=== PATIENT | female | born 1990 | race Caucasian/White ===

== ENCOUNTER 2016-12-16 09:36 | Emergency (ER) | payer OTHER ==
[~2016-12-16] VITALS: Ht 167.6 cm; Wt 65.8 kg
[2016-12-16 09:48] VITALS: BP 118/65
--- NOTE | 2016-12-16 09:51 | NUR ---
Patient ambulated to bed 3. RN evaluating patient at bedside.
--- NOTE | 2016-12-16 09:55 | NUR ---
PT PRESENTS TO ER W/C/O RUQ PAIN X2 WEEKS. HX KIDNEY PROBLEMS, PT UNABLE TO SPECIFY. DENIES N/V/D; SKIN IS PINK/WARM/DRY; AAOX4 WITH EVEN AND STEADY GAIT; LUNGS CLEAR BL; HR EVEN AND REGULAR; PT DENIES ANY FEVER, CP, SOB, OR COUGH AT THIS TIME; PATIENT STATES PAIN OF 7/10 AT THIS TIME; VSS; PATIENT POSITIONED FOR COMFORT; HOB ELEVATED; BEDRAILS UP X2; BED DOWN. ER MD MADE AWARE OF PT STATUS.
--- NOTE | 2016-12-16 10:13 | NUR ---
Dr. Block evaluating patient at bedside.
[2016-12-16] MEDS ORDERED: KETOROLAC 60 MG/2 ML VIAL IM ONE (10:15)
--- NOTE | 2016-12-16 10:35 | NUR ---
US AT BEDSIDE.
--- NOTE | 2016-12-16 11:03 | NUR ---
Patient taken to XRAY via wheelchair by tech.
[2016-12-16 11:39] VITALS: BP 119/69
--- NOTE | 2016-12-16 11:39 | NUR ---
Patient discharged with v/s stable. Written and verbal after care instructions given and explained. Patient verbalized understanding. Ambulatory with steady gait. All questions addressed prior to discharge. Advised to follow up with PMD.
--- NOTE | 2016-12-16 11:53 | NUR ---
Carlos mendez in [facility] - 12/16/16 at 1154 by WILLAM AAO PT "FEELS BETTER" PER PT, NO C/O SOB AT THIS TIME, VSS, SNACKS PROVIDED PER PT REQUEST, WILL CONTINUE TO MONITOR.
== END 2016-12-16 11:39 | disposition home or self-care (01) ==
LOC: MED 09:36
DX: R10.11 Right upper quadrant pain (principal)
CPT/HCPCS: 74000; 76705; 96372; 99284; J1885; Q0092

== ENCOUNTER 2018-09-18 11:05 | Emergency (ER) | payer OTHER ==
[~2018-09-18] VITALS: Ht 167.6 cm; Wt 79.1 kg
[2018-09-18 11:06] VITALS: BP 137/90
--- NOTE | 2018-09-18 11:15 | NUR ---
pt ambulated to rm 11 with steady gait
--- NOTE | 2018-09-18 11:20 | NUR ---
28 YO F BIB FAMILY W/ C/O 05/19 NECK PAIN X THIS MORNING. PT REPORTS SHE WOKE UP AND TURNED HER NECK, HEARD A "CRUNCH" SOUND. DENIES ANY RECENT INJURY. AAOX4 TO PERSON, PLACE, TIME, AND SITUATION. GCS 15, AMB W/ STEADY GAIT. DENIES ANY TRAVELING. NO MEDS TAKEN FOR PAIN PATIENT CARE ASSISTANT. PAIN WORSE WITH ROM. NAD. AWAITING ER MD MUNIZ. WILL CONTINUE TO MONITOR .
--- NOTE | 2018-09-18 12:10 | NUR ---
ER MD ASTUDILLO BY BEDSIDE EXAMINING PT
[2018-09-18] MEDS ORDERED: LORazepam 1 MG TAB PO ONE (12:25)
[2018-09-18] MEDS ORDERED: KETOROLAC 60 MG/2 ML VIAL IM ONE (12:25)
--- NOTE | 2018-09-18 13:06 | NUR ---
Patient discharged with v/s stable. Written and verbal after care instructions given and explained. Patient alert, oriented and verbalized understanding of instructions. Ambulatory with steady gait. All questions addressed prior to discharge. ID band removed. Patient advised to follow up with PMD. Rx of Tramadol 50mg, Robaxin 500mg, and Motrin 800mg given. Patient educated on indication of medication including possible reaction and side effects. Opportunity to ask questions provided and answered.
[2018-09-18 13:07] VITALS: BP 130/81
== END 2018-09-18 13:06 | disposition home or self-care (01) ==
LOC: MED 11:05
DX: M43.6 Torticollis (principal); Z88.1 Allergy status to other antibiotic agents
CPT/HCPCS: 72040; 96372; 99283; J1885

== ENCOUNTER 2018-11-01 22:09 | Emergency (ER) | payer OTHER ==
[~2018-11-01] VITALS: Ht 167.6 cm; Wt 75.7 kg
[2018-11-01 22:15] VITALS: BP 146/73
[2018-11-01 22:19] VITALS: BP 146/73
--- NOTE | 2018-11-01 22:21 | NUR ---
Patient ambulated to bed 2.
--- NOTE | 2018-11-01 22:27 | NUR ---
PT MOVED TO BED 1.
--- NOTE | 2018-11-01 22:29 | NUR ---
PT C/O L 3RD DIGIT 05/19 ACHING PAIN, EDEMA AND ERYTHEMA S/P HAMSTER BITE APPROX 1 HR AGO. TETANUS NOT UTD.
--- NOTE | 2018-11-01 22:33 | NUR ---
DR. HARRISON AT BEDSIDE EVALUATING PT
--- NOTE | 2018-11-01 22:34 | NUR ---
TDAP STATEMENT GIVEN, CONSENT SIGNED
[2018-11-01] MEDS ORDERED: AMOXIL/CLAVULANATE 875/125 MG 1 TAB PO ONE (22:35)
[2018-11-01] MEDS ORDERED: IBUPROFEN 800 MG TAB PO ONE (22:35)
[2018-11-01] MEDS ORDERED: AMOXICILLIN 500 MG CAP PO ONE (22:45)
--- NOTE | 2018-11-01 22:55 | NUR ---
Patient discharged with v/s stable. Written and verbal after care instructions given and explained. Patient alert, oriented and verbalized understanding of instructions. Ambulatory with steady gait. All questions addressed prior to discharge. ID band removed. Patient advised to follow up with PMD. Rx of MOTRIN AND AUGMENTIN given. Patient educated on indication of medication including possible reaction and side effects. Opportunity to ask questions provided and answered.
== END 2018-11-01 22:55 | disposition home or self-care (01) ==
LOC: MED 22:09
DX: S61.253A Open bite of left middle finger without damage to nail, initial encounter (principal); Z88.1 Allergy status to other antibiotic agents; W53.81XA Bitten by other rodent, initial encounter; Y93.89 Activity, other specified; Y92.89 Other specified places as the place of occurrence of the external cause; Y99.8 Other external cause status
CPT/HCPCS: 90471; 90715; 99283

== ENCOUNTER 2019-03-03 11:32 | Emergency (ER) | payer OTHER ==
[~2019-03-03] VITALS: Ht 167.6 cm; Wt 81.2 kg
[2019-03-03 11:45] VITALS: BP 125/72
--- NOTE | 2019-03-03 11:53 | NUR ---
28/F BIB C/O NAUSEA & INTERMITENT HEADACHE X 2 WEEKS & C/O RLQ ABDOMINAL PAIN X YESTERDAY. DENIES DYSURIA OR INJURY OR TRAUMA. PATIENT STATES PAIN OF 4/10 AT THIS TIME. PATIENT POSITIONED FOR COMFORT; HOB ELEVATED; BEDRAILS UP X1; BED DOWN. ER MD MADE AWARE OF PT STATUS.
--- NOTE | 2019-03-03 12:04 | NUR ---
Dr. Ordaz evaluating patient at bedside.
[2019-03-03 12:15] VITALS: BP 125/72
--- NOTE | 2019-03-03 12:15 | NUR ---
Patient discharged with v/s stable. Written and verbal after care instructions given and explained. Patient alert, oriented and verbalized understanding of instructions. Ambulatory with steady gait. All questions addressed prior to discharge. ID band removed. Patient advised to follow up with PMD. Rx of DOXYCYCLINE&MUPIROCIN given. Patient educated on indication of medication including possible reaction and side effects. Opportunity to ask questions provided and answered.
== END 2019-03-03 12:15 | disposition home or self-care (01) ==
LOC: MED 11:32
DX: L73.9 Follicular disorder, unspecified (principal); Z88.1 Allergy status to other antibiotic agents
CPT/HCPCS: 81002; 81025; 99283

== ENCOUNTER 2019-04-20 19:37 | Emergency (ER) | payer OTHER ==
[~2019-04-20] VITALS: Ht 167.6 cm; Wt 81.6 kg
[2019-04-20 20:01] VITALS: BP 141/88
--- NOTE | 2019-04-20 20:06 | NUR ---
PT AMBULATED TO LOBBY.
--- NOTE | 2019-04-20 21:16 | NUR ---
PT TAKEN TO BED 5
--- NOTE | 2019-04-20 21:20 | NUR ---
28 Y/O MALE PRESENTS TO ED, C/O OF INSECT BITE. PT STATES RIGHT FOOT 3RD DIGIT INSECT BITE FOUND THIS MORNING. WAS A 1MM RED SPOT. HAS GROWN TO 5MM AND SKIN NOW OPEN. PT STATES WEARING SANDLES ALL DAY AND WATCHING THE AREA OPEN IN SIZE OVER THE DAY. TREATING WITH HYDROGEN PEROXIDE AND ALCOHOL, 3 TIMES. AFEBRILE, VSS.
[2019-04-20] MEDS ORDERED: NEOMYCIN/POLYMYXIN/BACITRACIN 0.9 GM/1 PKT TP ONE (21:25)
[2019-04-20] MEDS ORDERED: BACITRACIN OINT 500 UNITS/GM PKT TP ONE (21:25)
--- NOTE | 2019-04-20 21:31 | NUR ---
PATIENT REFUSED NEOSPORIN
[2019-04-20 21:36] VITALS: BP 141/88
--- NOTE | 2019-04-20 21:36 | NUR ---
Patient discharged with v/s stable. Written and verbal after care instructions given and explained. Patient alert, oriented and verbalized understanding of instructions. Ambulatory with steady gait. All questions addressed prior to discharge. ID band removed. Patient advised to follow up with PMD. Rx of KEFLEX, MUPIROCIN WAS given. Patient educated on indication of medication including possible reaction and side effects. Opportunity to ask questions provided and answered.
== END 2019-04-20 21:36 | disposition home or self-care (01) ==
LOC: MED 19:37
DX: S90.811A Abrasion, right foot, initial encounter (principal); Z88.1 Allergy status to other antibiotic agents; X58.XXXA Exposure to other specified factors, initial encounter; Y93.89 Activity, other specified; Y92.89 Other specified places as the place of occurrence of the external cause; Y99.8 Other external cause status
CPT/HCPCS: 99283

== ENCOUNTER 2019-05-17 23:49 | Emergency (ER) | payer OTHER ==
[~2019-05-17] VITALS: Ht 167.6 cm; Wt 81.2 kg
[2019-05-18 00:36] VITALS: BP 119/91
--- NOTE | 2019-05-18 00:48 | NUR ---
PT AMBULATES TO LOBBY WITH STEADY GAIT. URINE CUP PROVIDED.
[2019-05-18 01:12] LABS: EOSINOPHILS # (AUTO) 0.1 K/uL (0-0.4); HEMOGLOBIN 11.7 g/dL (12.0-16.0); WHITE BLOOD COUNT (AUTO) 8.6 K/uL (4.8-10.8)
[2019-05-18 01:20] LABS: BASOPHILS % (AUTO) 0.4 % (0.0-2.0); EOSINOPHILS % (AUTO) 1.2 % (0.0-4.0); HEMATOCRIT 36.1 % (36-48); LYMPHOCYTES # (AUTO) 2.5 K/uL (2.5-16.5); LYMPHOCYTES % (AUTO) 28.9 % (20.5-51.1); MEAN CORPUSCULAR HEMOGLOBIN 27 pg (27-31); MEAN CORPUSCULAR HGB CONC 33 g/dL (33-37); MEAN CORPUSCULAR VOLUME 84.4 fL (80-94); MONOCYTES % (AUTO) 11.2 % (1.7-9.3); NEUTROPHILS % (AUTO) 58.3 % (42.2-75.2); PLATELET COUNT (AUTO) 307 K/uL (140-450); RED BLOOD CELL COUNT(AUTO) 4.28 MIL/uL (4.20-5.40); RED CELL DISTRIBUTION WIDTH 13.9 % (11.6-13.7)
--- NOTE | 2019-05-18 01:46 | NUR ---
PT AMBULATES TO BED 05 WITH STEADY GAIT.
--- NOTE | 2019-05-18 01:50 | NUR ---
28 Y/O F PRESENTS TO ER C/O VAGINAL BLEEDING AND CRAMPING. PER PT "I WAS 3 WEEKS LATE FOR HAVING MY PERIOD AND THURSDAY I THOUGHT I STARTED BUT I WAS BLEEDING ALOT AND WENT THROUGH AN ENTIRE BOX OF TAMP[place] AND "HEARD SOMETHING DROP" WHEN SHE WAS USING THE RESTROOM" PT HAS BEEN SPOTTING THURSDAY - TODAY. BLEEDING IS CONTROLLED. PAIN LEVEL 6/10, SUPRAPUBIC CRAMPING PAIN THAT COMES AND GOES. PT HAS VAGINAL DISCHARGE THAT IS CLEAR, THICK AND HAS A MUCOUS TEXTURE. PT DENIES ANY URINARY SYMPTOMS. ALLERGIES: NEOMYCIN. NO MED HX. SAFETY MEASURES IN PLACE. WAITING FOR ERMD TO EVALUATE PT.
--- NOTE | 2019-05-18 03:21 | NUR ---
DR. COYLE EVALUATING PT AT BEDSIDE
[2019-05-18] MEDS ORDERED: KETOROLAC 60 MG/2 ML VIAL IM ONE (03:30)
[2019-05-18 04:04] VITALS: BP 119/91
--- NOTE | 2019-05-18 04:04 | NUR ---
Patient discharged with v/s stable. Written and verbal after care instructions given and explained. Patient alert, oriented and verbalized understanding of instructions. Ambulatory with steady gait. All questions addressed prior to discharge. ID band removed. Patient advised to follow up with PMD. Rx of Motrin 800mg and zofran 8mg was given. Patient educated on indication of medication including possible reaction and side effects. Opportunity to ask questions provided and answered.
== END 2019-05-18 04:04 | disposition home or self-care (01) ==
LOC: MED 23:49
DX: N93.8 Other specified abnormal uterine and vaginal bleeding (principal); R11.2 Nausea with vomiting, unspecified; Z88.1 Allergy status to other antibiotic agents
CPT/HCPCS: 36415; 81002; 81025; 84702; 85025; 96372; 99283; J1885